=== PATIENT | male | born 2005 | race Caucasian/White ===

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

== ENCOUNTER 2024-08-03 09:28 | Emergency (ER) | payer MEDICAID, OTHER ==
[~2024-08-03] VITALS: Ht 180.3 cm; Wt 100.0 kg
[~2024-08-03 09:28] MED LIST: ACET-66 PO; IBUP-1492 PO; LIDO700A15 TP
[2024-08-03 09:32] VITALS: BP 140/91; PULSE 89; RESP 18; TEMP 98.5; O2SAT 98
== END 2024-08-03 11:16 | disposition home or self-care (01) ==
LOC: EMS 09:28
DX: S93.401A Sprain of unspecified ligament of right ankle, initial encounter (principal); W10.9XXA Fall (on) (from) unspecified stairs and steps, initial encounter; Y93.89 Activity, other specified; Y92.89 Other specified places as the place of occurrence of the external cause; Y99.8 Other external cause status
CPT/HCPCS: 99283